=== PATIENT | female | born 1990 ===

== ENCOUNTER 2016-11-17 10:37 | Observation (INO) | payer BC, OTHER ==
[2016-11-17 10:37] VITALS: BMI 24.3
[2016-11-17 11:08] VITALS: O2SAT 99
[2016-11-17 11:38] LABS: BASO % 0.4 % (0.0-2.0); EOS % 0.6 % (0.0-4.0); HEMOGLOBIN 12.9 g/dL (12.0-16.0); LYMPH # 0.8 K/uL (1.0-4.3); LYMPH % 17.8 % (20.0-40.0); MEAN CELL VOLUME 88.6 fl (81.0-99.0); MEAN CORPUSCULAR HEMOGLOBIN 29.5 pg (27.0-31.0); MEAN CORPUSCULAR HGB CONC 33.3 g/dL (33.0-37.0); MEAN PLATELET VOLUME 8.6 fl (7.2-11.7); MONO # 0.5 K/uL (0.0-0.8); MONO % 10.2 % (0.0-10.0); NEUT # 3.2 K/uL (1.8-7.0); RBC 4.38 Mil/uL (3.80-5.20); RED CELL DISTRIBUTION WIDTH 12.5 % (11.5-14.5)
[2016-11-17 11:40] LABS: SQUAMOUS EPITHIAL 7 /hpf (0-5); URINE BACTERIA RARE (<OCC); URINE BILIRUBIN NEGATIVE (NEGATIVE); URINE BLOOD MODERATE (NEGATIVE); URINE CLARITY SLIGHTY-CLOUDY (Clear); URINE COLOR YELLOW (YELLOW); URINE GLUCOSE (UA) NEG (Normal); URINE LEUKOCYTE ESTERASE NEG Leu/uL (Negative); URINE NITRATE NEGATIVE (NEGATIVE); URINE PROTEIN NEGATIVE (NEGATIVE); URINE UROBILINOGEN 0.2-1.0 mg/dL (0.2-1.0)
[2016-11-17 11:42] LABS: WHITE BLOOD COUNT 4.5 K/uL (4.8-10.8)
--- NOTE | 2016-11-17 11:44 | ED PDOC ---
HPI: Abdomen Time Seen by Provider: 11/17/16 11:42 Chief Complaint (Nursing): Abdominal Pain Chief Complaint (Provider): ABDOMINAL PAIN History Per: Patient (26 Y/O FEMALE HERE WITH BILATERAL LOWER ABDOMINAL PAIN GRADUALLY NOTED ONSET SINCE THIS MORNING. DENIES ANY URINARY SYMPTOMS. DENIES ANY CONSTIPATION/DIARRHEA. DENIES ANY FEVERS/CHILLS. H/O GALLBLADDER SX IN PAST. LMP LAST WEEK. ) Past Medical History Reviewed: Historical Data, Nursing Documentation, Vital Signs Vital Signs: Last Vital Signs Temp 98 F 11/17/16 11:04 Pulse 95 H 11/17/16 11:04 Resp 18 11/17/16 11:04 BP 115/71 11/17/16 11:04 Pulse Ox 99 11/17/16 18:27 - Medical History PMH: Denies: Chronic Kidney Disease - Surgical History Surgical History: Cholecystectomy - Family History Family History: States: No Known Family Hx - Home Medications Home Medications: Ambulatory Orders Medication Instructions Recorded oxyCODONE/Acetaminophen [Percocet 1 ea PO TID PRN #15 tab 01/29/15 5/325 mg Tab] Amoxicillin 875 mg PO BID #14 tab 06/26/15 Naproxen [Naprosyn Tab] 375 mg PO Q8 PRN #21 tab 11/17/16 - Allergies Allergies/Adverse Reactions: Allergies Allergy/AdvReac Type Severity Reaction Status Date / Time No Known Allergies Allergy Verified 11/17/16 11:04 Review of Systems ROS Statement: Except As Marked, All Systems Reviewed And Found Negative Physical Exam - Reviewed Nursing Documentation Reviewed: Yes Vital Signs Reviewed: Yes - Physical Exam Appears: Positive for: Well, Non-toxic, No Acute Distress Head Exam: Positive for: ATRAUMATIC, NORMAL INSPECTION, NORMOCEPHALIC Skin: Positive for: Normal Color, Warm, DRY Eye Exam: Positive for: EOMI, Normal appearance, PERRL ENT: Positive for: Normal ENT Inspection Neck: Positive for: Normal, Painless ROM Cardiovascular/Chest: Positive for: Regular Rate, Rhythm Respiratory: Positive for: CNT, Normal Breath Sounds Gastrointestinal/Abdominal: Positive for: Normal Exam, Bowel Sounds, Soft Pelvic Exam: Positive for: Active Bleeding, Tender Adnexa (TENDERNESS NOTED BY RIGHT ADNEXA AND ABOVE.) Back: Positive for: Normal Inspection Extremity: Positive for: Normal ROM Neurologic/Psych: Positive for: Alert, Oriented - Laboratory Results Result Diagrams: 11/17/16 11:30 11/17/16 11:30 Urine POC: Negative Urine dip results: Positive for: Blood. Negative for: Leukocyte Esterase, Nitrate, Ketones, Glucose, Bilirubin - ECG O2 Sat by Pulse Oximetry: 99 ED OBSERVATION Date of observation admission: 11/17/16 Time of observation admission: 13:22 - Observation admission statement Patient is being placed in observation because:: ABDOMINAL PAIN - Goals of Observation Goals of observation are:: EVALUATION AND DETERMINATION OF CAUSE OF ABDOMINAL PAIN - Progress Note Progress Note: 11/17/16 13:23 TRANSVAGINAL US NOTED NEG FOR FINDINGS OF OVARIAN CYST. PATIENT RE-EVALUATED AND NOTED TO HAVE INCREASING ABDOMINAL PAIN MORPHINE 2 MG IV X 1 DOSE ORDERED PREPPED FOR CT ABD/PELVIS R/O APPENDICITIS 11/17/16 18:21 ct abd/pelvis: no findings consistent with appendicitis patient comfortable in ED. Tolerating po. rocephin 250 gm im x 1 dose zithromax 1 gm po x 1 dose for pelvic pain 11/17/16 18:27 Disposition - Clinical Impression Clinical Impression: Pelvic pain - Patient ED Disposition Is Patient to be Admitted: No - Disposition Disposition: Routine/Home Disposition Time: 18:23 Condition: FAIR
[2016-11-17 11:47] LABS: ALB/GLOB RATIO 1.4 (1.0-2.1); ALBUMIN 4.6 g/dL (3.5-5.0); ALT/SGPT 32 U/L (9-52); AST/SGOT 23 U/L (14-36); BLOOD UREA NITROGEN 14 mg/dl (7-17); CALCIUM 9.5 mg/dL (8.4-10.2); GFR AFRICAN-AMERICAN > 60; GFR NON-AFRICAN AMERICAN > 60; LIPASE 24 U/L (23-300)
[2016-11-17] MEDS ORDERED: Iohexol 240 (50 ml) PO ONE (13:20)
--- NOTE | 2016-11-17 13:32 | US ---
HISTORY: RIGHT ADNEXAL TENDERNESS 1 day duration. R/O Ovarian CYST. LMP 11/11/2016. COMPARISON: None available. TECHNIQUE: Transvaginal only. Real -time technique with 2D, duplex and color Doppler FINDINGS: UTERUS: Measures 3.2 x 5.2 x 8.3 cm. Normal in size and appearance. No fibroid or other mass lesion seen. ENDOMETRIUM: Measures 4.9 mm in diameter. No ultrasound findings to suggest gestational sac, fluid, debris, mass or polyp or other pathologic process within the endometrium. CERVIX: No cervical abnormality identified. RIGHT OVARY: Measures 1.6 x 2.5 x 3.1 cm. No solid mass. Normal flow. Multiple subcentimeter follicles. LEFT OVARY: Measures 1.7 x 2.9 x 3 cm. No solid mass. Normal flow. Multiple subcentimeter follicles. FREE FLUID: No significant free fluid noted. OTHER FINDINGS: None. IMPRESSION: No significant or acute findings to account for/ related to the clinical presentation.
[2016-11-17] MEDS ORDERED: Iohexol 240 (50 ml) ONE (13:43)
[2016-11-17 14:24] LABS: INR 1.4 (0.9-1.2); PROTHROMBIN TIME 14.7 Seconds (9.8-13.1)
[2016-11-17] MEDS ORDERED: Iohexol 300 100 ML IJ ONE (16:38)
[2016-11-17] MEDS ORDERED: Sodium Chloride 0.9% 50 ML IV ONE (16:38)
--- NOTE | 2016-11-17 17:31 | CT ---
PROCEDURE: CT Abdomen and Pelvis with contrast HISTORY: R/O APPENDICITIS COMPARISON: None TECHNIQUE: Contrast dose: Omnipaque 300, 90 cc Radiation dose: Total exam DLP = 525 mGy-cm. This CT exam was performed using one or more of the following dose reduction techniques: Automated exposure control, adjustment of the mA and/or kV according to patient size, and/or use of iterative reconstruction technique. FINDINGS: LOWER THORAX: Trace bilateral basilar dependent atelectasis identified with lung bases otherwise unremarkable appearing. LIVER: Unremarkable. No gross lesion or ductal dilatation. GALLBLADDER AND BILE DUCTS: Surgically absent. PANCREAS: Unremarkable. No gross lesion or ductal dilatation. SPLEEN: Unremarkable. ADRENALS: Unremarkable. No mass. KIDNEYS AND URETERS: Unremarkable. No hydronephrosis. No cystic or solid mass. VASCULATURE: Unremarkable. No aortic aneurysm. BOWEL: Unremarkable. No obstruction. No gross mural thickening. The stomach is distended with retained food. APPENDIX: Normal appendix. PERITONEUM: Unremarkable. No free fluid. No free air. LYMPH NODES: Unremarkable. No enlarged lymph nodes. BLADDER: Urinary bladder is thin walled but bb prominently distended. REPRODUCTIVE: There are no suspicious an adnexal findings. BONES: No acute fracture. OTHER FINDINGS: None. IMPRESSION: 1. No bowel or urinary tract obstruction, mesenteric edema, ascites or significant lymphadenopathy. 2. Urinary bladder appears relatively prominently distended but is otherwise unremarkable appearing. 3. Surgically absent gallbladder. .
[2016-11-17] MEDS ORDERED: cefTRIAXone (Rocephin) 250 mg Inj IM ONE (18:20)
[2016-11-17] MEDS ORDERED: cefTRIAXone (Rocephin) 250 mg Inj ONE (18:45)
[2016-11-17 18:54] VITALS: BP 120/77; PULSE 77; RESP 16; TEMP 98
== END 2016-11-17 18:54 | disposition home or self-care (01) ==
LOC: H.ER 10:37 → H.EROBSV 13:22
PROVIDERS: ADMIT Emergency Medicine; ATTEND Emergency Medicine
DX: R10.2 Pelvic and perineal pain (principal)
CPT/HCPCS: 74177; 76830; 80053; 81003; 81025; 83690; 85025; 85610; 85730; 86850; 86900; 87086; 87491; 87591; 96372; 96374; 99283; G0378; J0696; J2270; Q9966; Q9967